=== PATIENT | male | born 1990 | race Caucasian/White ===

== ENCOUNTER 2022-03-19 19:35 | Emergency (ER) | payer OTHER, SELFPAY ==
[2022-03-19] VITALS (11 sets, daily range): BP systolic 127–138; BP diastolic 86–111; PULSE 103–122; TEMP 36.6; O2SAT 95–99; BMI 25.9
[2022-03-19] MEDS: 0.9 % SODIUM CHLORIDE 1000 ml 1,000 ML IV (20:04)
[2022-03-19 20:15] LABS: Mono Screen* Negative (Negative)
[2022-03-19 20:26] LABS: Strep A DNA Probe* DETECTED (Not Detectd)
--- NOTE | 2022-03-19 20:32 | ED_ITS ---
HPI - General Adult General Chief complaint: Ear/Nose/Throat Problem Stated complaint: Severe throat pain, can't swallow Time Seen by Provider: 03/19/22 19:43 Source: patient Mode of arrival: ambulatory Limitations: no limitations History of Present Illness HPI narrative: [age] year male coming in today complaining of a sore throat. States that the worst sore throat he has ever had. He denies fevers but does feel diaphoretic. He denies chills. He states he has been having a very difficult time drinking or eating anything. He denies any skin rashes. He denies headache. No diarrhea. He states that his had similar symptoms but she improved while he got worse in the last 24 hours. He was seen in the urgent care yesterday and was told that all of his tests were negative. Related Data Home Medications Medication Instructions Recorded Confirmed famotidine 40 mg tablet 40 mg PO 03/18/22 03/18/22 pantoprazole 40 mg tablet,delayed ea PO 03/18/22 03/18/22 release testosterone cypionate 200 mg/mL 200 mg IM 03/18/22 03/18/22 intramuscular oil chorionic gonadotropin, human IM 03/19/22 Previous Rx's Medication Instructions Recorded amoxicillin 500 mg tablet 1,000 mg PO BID 10 days #40 tabs 03/19/22 Allergies Allergy/AdvReac Type Severity Reaction Status Date / Time methocarbamol Allergy Unknown Verified 03/19/22 19:49 Review of Systems Status of ROS: Reports: 10 or more systems reviewed and unremarkable except as noted in History and below [facility] Social History Smoking Status: Never smoker How often do you have a drink containing alcohol: monthly or less How many standard drinks containing alcohol do you have on a typical day: 1 or 2 How often do you have six or more drinks on one occasion: Never AUDIT-C Alcohol total score: 1 Non-prescribed substance use: denies use Exam Narrative: Exam Narrative: Well-nourished well-developed patient in no acute distress. Alert and oriented. Answers questions appropriately. Mood and affect are appropriate. Thoughts are goal oriented and rational. No tangential or magical thinking noted. Patient speaks in full sentences without needing to catch his breath. Voice sounds normal. HEENT: Normocephalic atraumatic. Pupils are equally round reactive to light. Extraocular muscles are intact. Conjunctivae are moist without any icterus noted. Moist mucous membranes. Posterior pharynx shows bilateral tonsillar swelling with exudates. Uvula is slightly swollen and erythematous. Soft palate is intact and is not protruding forward. Tonsils are not protruding forward. Neck is soft without any lymphadenopathy or thyromegaly. No masses are appreciated. Cardiovascular: Heart is tachycardic with regular rhythm S1 and S2 are present without any murmurs. Lungs: Clear to auscultation bilaterally no wheezes rhonchi or rales are appreciated. Patient takes deep breaths without any discomfort. Skin: Well perfused without any obvious rashes. Const: Vital Signs, click to edit/add: Vital Signs - 24 hr 03/19/22 19:42 03/19/22 19:52 03/19/22 20:04 Temperature 97.9 F Pulse Rate 122 H 110 H Pulse Rate [Left P ulse Oximeter] 120 H Blood Pressure Blood Pressure [Ri ght Upper Arm] 138/111 H Pulse Oximetry 98 98 99 Oxygen Delivery Me thod Room Air 03/19/22 20:07 03/19/22 20:15 03/19/22 20:30 Temperature Pulse Rate 108 H 103 H 105 H Pulse Rate [Left P ulse Oximeter] Blood Pressure 127/86 Blood Pressure [Ri ght Upper Arm] Pulse Oximetry 97 96 97 Oxygen Delivery Me thod 03/19/22 20:31 Temperature Pulse Rate 107 H Pulse Rate [Left P ulse Oximeter] Blood Pressure 130/91 H Blood Pressure [Ri ght Upper Arm] Pulse Oximetry 96 Oxygen Delivery Me thod Course Course Hospital Course: Triple swab was positive for COVID however patient states that he had COVID a few weeks ago., mono negative. Rapid strep positive. And received a L of normal saline and IV Toradol while he was here. Vital Signs Vital signs: Initial Vital Signs Temperature 97.9 F 03/19/22 19:42 Temperature Source Temporal Artery Scan 03/19/22 19:42 Pulse Rate 120 H 03/19/22 19:42 Blood Pressure 138/111 H 03/19/22 19:42 Blood Pressure Mean 120 03/19/22 19:42 Blood Pressure Position Supine 03/19/22 19:42 Pulse Oximetry 98 03/19/22 19:42 Oxygen Delivery Method 03/19/22 19:42 Vital Signs Temperature 97.9 F 03/19/22 19:42 Pulse Rate 120 H 03/19/22 19:42 Blood Pressure 138/111 H 03/19/22 19:42 Pulse Oximetry 98 03/19/22 19:42 Oxygen Delivery Method 03/19/22 19:42 Temperature 97.9 F 03/19/22 19:42 Pulse Rate 107 H 03/19/22 20:31 Blood Pressure 130/91 H 03/19/22 20:31 Pulse Oximetry 96 03/19/22 20:31 Oxygen Delivery Method 03/19/22 19:42 Medical Decision Making MDM Narrative Medical decision making narrative: 31-year-old male with strep pharyngitis. Will treat with amoxicillin for 10 days. Follow-up as needed. Lab Data Lab results reviewed: Yes I reviewed the patient's lab results Labs: Lab Results 03/19/22 03/19/22 03/19/22 Range/Units 19:38 19:38 19:55 SARS-CoV-2 (PCR) POSITIVE SARS-CoV-2 A (Negative) Monoscreen Negative (Negative) Influenza Type A (PCR) Negative PCR FLU A (Negative) Influenza Type B (PCR) Negative PCR FLU B (Negative) RSV (PCR) Negative PCR RSV (Negative) Group A Strep DNA DETECTED A (Not Detectd) Discharge Plan Discharge Clinical Impression: Acute streptococcal pharyngitis Patient Disposition: Home, Self-Care Condition: Stable Additional Instructions: Take all antibiotics as prescribed. Follow-up with your primary care provider as needed. [place] to [facility]. Amoxicillin to pharmacy. Prescriptions: New amoxicillin 500 mg tablet 1,000 mg PO BID 10 Days Qty: 40 0RF No Action famotidine 40 mg tablet 40 mg PO testosterone cypionate 200 mg/mL oil 200 mg IM pantoprazole 40 mg tablet,delayed release (DR/EC) PO Label Comments: TAKE 1 TABLET BY MOUTH ONCE DAILY chorionic gonadotropin, human [HCG] IM Follow Up/Referrals: Provider,Not a Local [Primary Care Provider] - Stand Alone Forms: [facility] Info Instructions
[2022-03-19 20:34] LABS: PCR FLU A Negative PCR FLU A (Negative); PCR FLU B Negative PCR FLU B (Negative); PCR RSV Negative PCR RSV (Negative); SARS PCR* POSITIVE SARS-CoV-2 (Negative)
[2022-03-19] MEDS: KETOROLAC 30 MG/ML inj IVP (20:35)
[2022-03-19 21:10] LABS: SARS Antigen* Negative (Negative)
== END 2022-03-19 21:12 | disposition home or self-care (01) ==
PROVIDERS: Emergency Provider Family Medicine
DX: J02.0 Streptococcal pharyngitis (principal)
CPT/HCPCS: 36415; 86308; 87426; 87502; 87634; 87635; 87651; 96361; 96374; 99283; 99284; J1885; J7030